=== PATIENT | male | born 1945 | race Caucasian/White ===

== ENCOUNTER 2018-06-16 23:21 | Emergency (ER) | payer OTHER ==
[~2018-06-16] VITALS: Ht 172.7 cm; Wt 78.0 kg
[~2018-06-16 23:21] MED LIST: ASPI81CH PO; ATOR10 PO; CEPH500 PO; CYCL10 PO; Hydrocodone-Ap1 EA23 PO; IBUP100S; IBUP800 PO; OXYC5 PO
== END 2018-06-17 01:00 | disposition home or self-care (01) ==
LOC: ER 23:21
DX: S60.211A Contusion of right wrist, initial encounter (principal); S60.221A Contusion of right hand, initial encounter; X50.1XXA Overexertion from prolonged static or awkward postures, initial encounter
CPT/HCPCS: 73110; 99283-25

== ENCOUNTER → 2019-07-04 | Outpatient (CLI) | payer OTHER | END | disposition home or self-care (01) | LOC: LAB SHORT 17:23 → LAB EV 17:23 | DX: R07.0 Pain in throat (principal) | CPT/HCPCS: 87081 ==